=== PATIENT | female | born 1985 | race Caucasian/White ===

== ENCOUNTER 2018-02-26 20:16 | Emergency (ER) | payer SELFPAY ==
[~2018-02-26] VITALS: Ht 165.1 cm; Wt 62.0 kg
[~2018-02-26 20:16] MED LIST: AMOXICILLIN500 MG PO; CIPROFLOXACN500 MG PO; FLEXERIL10 MG PO; KEFLEX500 MG PO; NO MEDS; ULTRAM50 MG OR
[2018-02-26] MEDS ORDERED: MEDDOSEPAK PO (20:42)
[2018-02-26 21:45] VITALS: BP 109/70
== END 2018-02-26 21:45 | disposition home or self-care (01) | DRG 607 ==
LOC: ED 20:16
DX: L30.9 Dermatitis, unspecified (principal); F17.210 Nicotine dependence, cigarettes, uncomplicated

== ENCOUNTER 2018-03-25 18:46 | Emergency (ER) | payer SELFPAY ==
[~2018-03-25] VITALS: Ht 165.1 cm; Wt 60.8 kg
[~2018-03-25 18:46] MED LIST changes: +MEDDOSEPAK PO
[2018-03-25 19:43] LABS: URINE BILIRUBIN - DIPSTICK NEGATIVE (NEGATIVE); URINE BLOOD DIPSTICK SMALL (NEGATIVE); URINE COLOR YELLOW; URINE GLUCOSE - DIPSTICK NEGATIVE (NEGATIVE); URINE KETONE NEGATIVE (NEGATIVE); URINE LEUK ESTERASE SMALL (Negative); URINE NITRITE - DIPSTICK NEGATIVE (Negative); URINE PROTEIN - DIPSTICK NEGATIVE (NEG-TRACE); URINE SPECIFIC GRAVITY >=1.030; URINE UROBILINOGEN - DIPSTICK 0.2 E.U./dL (0.2)
[2018-03-25 19:44] LABS: URINE CLARITY CLOUDY
[2018-03-25 19:50] LABS: URINE SQUAMOUS EPITHELIAL CELL MODERATE EPI/hpf (0-FEW); URINE WBC 20-50 WBC/hpf (0-5)
[2018-03-25] MEDS ORDERED: KEFLEX500 M1 PO (20:52)
[2018-03-25 21:00] VITALS: BP 100/59
== END 2018-03-25 21:00 | disposition home or self-care (01) | DRG 914 ==
LOC: ED 18:46
DX: S09.90XA Unspecified injury of head, initial encounter (principal); S00.83XA Contusion of other part of head, initial encounter; S40.012A Contusion of left shoulder, initial encounter; Y04.8XXA Assault by other bodily force, initial encounter; Y93.9 Activity, unspecified; Y92.009 Unspecified place in unspecified non-institutional (private) residence as the place of occurrence of the external cause

== ENCOUNTER 2021-11-18 09:25 | Emergency (ER) | payer OTHER ==
[~2021-11-18] VITALS: Ht 165.1 cm; Wt 63.5 kg
[~2021-11-18 09:25] MED LIST changes: +KEFLEX500 M1 PO
[2021-11-18 10:57] LABS: HEMATOCRIT 42.9 % (37.0-47.0); HEMOGLOBIN 14.4 g/dl (12.0-16.0); IMMATURE GRANULOCYTES 0.3 % (0.0-5.0); MEAN CELL VOLUME 81.4 fL CALC (80.0-100.0); MEAN CORPUSCULAR HGB 27.3 pG CALC (26.0-32.0); MEAN CORPUSCULAR HGB CONC 33.6 g/dL CAL (32.0-36.0); NEUT# 6.06 thou/uL (2.00-7.15); RED BLOOD COUNT 5.27 mill/uL (4.20-5.60)
[2021-11-18 11:16] LABS: HCG SERUM/URINE (NEG/POS) POSITIVE (NEGATIVE)
[2021-11-18 11:17] LABS: ALBUMIN 4.5 g/dL (3.2-5.0); AMYLASE 82 u/l (30-110); ANION GAP 17 (6-22 (CALC)); BUN 13 mg/dL (7-17); BUN/CREATININE RATIO 25 (12-20 (CALC)); CARBON DIOXIDE 23 mmol/l (22-30); CHLORIDE 102 mmol/l (95-108); CREATININE 0.5 mg/dL (0.5-1.0); ETHYL ALCOHOL 0 mg/dl (0-30); GFR > 60 ML/MIN (>=60 (CALC)); GFR FOR AFR.AMER. > 60 ML/MIN (>=60 (CALC)); LIPASE 164 u/l (23-300); POTASSIUM 4.1 mmol/l (3.5-5.1); SGOT/AST 24 u/l (14-36); SODIUM 138 mmol/l (137-146)
[2021-11-18 11:29] LABS: ALKALINE PHOSPHATASE 147 u/l (38-126); BILIRUBIN, TOTAL 0.9 mg/dL (0.0-1.4); TOTAL PROTEIN 8.9 g/dL (6.3-8.2)
[2021-11-18 12:00] LABS: URINE BILIRUBIN - DIPSTICK NEGATIVE (NEGATIVE); URINE BLOOD DIPSTICK NEGATIVE (NEGATIVE); URINE COLOR YELLOW; URINE GLUCOSE - DIPSTICK NEGATIVE (NEGATIVE); URINE KETONE 15 mg/dL (NEGATIVE); URINE LEUK ESTERASE NEGATIVE (NEGATIVE); URINE PROTEIN - DIPSTICK NEGATIVE (NEG-TRACE); URINE SPECIFIC GRAVITY 1.025; URINE UROBILINOGEN - DIPSTICK 0.2 E.U./dL (0.2)
[2021-11-18 12:07] LABS: BETA-HCG, QUANT(RESULT NUMBER) 32246 mIU/mL
[2021-11-18 12:10] LABS: URINE NITRITE - DIPSTICK POSITIVE (Negative)
[2021-11-18 12:18] LABS: URINE AMORPH SEDIMENT MANY hpf (NONE-FEW); URINE BACTERIA MANY hpf; URINE RBC 0-2 RBC/hpf (0-5); URINE SQUAMOUS EPITHELIAL CELL FEW EPI/hpf (0-FEW); URINE WBC 0-2 WBC/hpf (0-5)
[2021-11-18] MEDS ORDERED: ZOFRAN4 MG/TAB PO (12:55)
[2021-11-18] MEDS ORDERED: KEFLEX500 MG PO (12:55)
[2021-11-18 13:29] VITALS: BP 104/57
== END 2021-11-18 13:29 | DRG 832 ==
LOC: ED 09:25
DX: O23.41 Unspecified infection of urinary tract in pregnancy, first trimester (principal); N39.0 Urinary tract infection, site not specified; O99.321 Drug use complicating pregnancy, first trimester; F11.90 Opioid use, unspecified, uncomplicated; O99.331 Smoking (tobacco) complicating pregnancy, first trimester; F17.210 Nicotine dependence, cigarettes, uncomplicated; B96.20 Unspecified Escherichia coli [E. coli] as the cause of diseases classified elsewhere; Z3A.01 Less than 8 weeks gestation of pregnancy; Z20.822 Contact with and (suspected) exposure to COVID-19